=== PATIENT | female | born 2005 | race Caucasian/White ===

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

== ENCOUNTER 2025-04-20 02:26 | Emergency (ER) | payer BC, SELFPAY ==
[2025-04-20 02:31] VITALS: BP 137/89; PULSE 74; TEMP 36.5; O2SAT 98; BMI 34.7
--- NOTE | 2025-04-20 02:55 | ED.URI1 ---
HPI - URI/Sore Throat General Chief Complaint: Upper Respiratory Infection Stated Complaint: CONGESTION,SORE THROAT, FEEL SICK TO STOMACH Time Seen by Provider: 04/20/25 02:51 Source: patient Limitations: no limitations History of Present Illness HPI Narrative: congestion and sore throat for 2 weeks. Productive cough. completing zpak but still feels ill. No fever or vomiting. No GI symptoms and not short of breath Related Data Home Medications ?Medication ?Instructions ?Recorded ?Confirmed azithromycin 250 mg tablet 250 mg PO DAILY 04/20/25 04/20/25 Allergies Allergy/AdvReac Type Severity Reaction Status Date / Time No Known Drug Allergies Allergy Verified 04/20/25 02:37 Review of Systems ROS Status of ROS 10 or more systems reviewed and unremarkable except as noted in history and below [facility] Social History Little interest or pleasure in doing things: not at all Feeling down, depressed, or hopeless: not at all Exam Constitutional Vital Signs, click to edit/add: Last Vital Signs Temp 97.7 F 04/20/25 02:31 Pulse 74 04/20/25 02:31 Resp 18 04/20/25 02:31 BP 137/89 04/20/25 02:31 Pulse Ox 98 04/20/25 02:31 O2 Del Method Room Air 04/20/25 02:31 Common normals: no apparent distress, average body habitus, oriented x3, no limitations, healthy appearing, alert and well nourished [facility] Common normals: normocephalic and head/scalp atraumatic Eye Common normals: PERRL, EOMs intact bilaterally and conjunctivae normal Respiratory Common normals: normal respiratory effort, no retractions, no use of accessory muscles and clear to auscultation bilaterally Cardio Common normals: regular rate, regular rhythm, S1 normal heart sound and S2 normal heart sound Extremity Common normals: normal to inspection and full ROM Neuro Common normals: oriented x3, CN's II-XII intact bilaterally, moves all extremities and no focal motor deficits Psych Appearance: grossly normal Course Vital Signs Vital signs: Vital Signs Temperature 97.7 F 04/20/25 02:31 Pulse Rate 74 04/20/25 02:31 Respiratory Rate 18 04/20/25 02:31 Blood Pressure 137/89 04/20/25 02:31 Pulse Oximetry 98 04/20/25 02:31 Oxygen Delivery Method Room Air 04/20/25 02:31 Temperature 97.7 F 04/20/25 02:31 Pulse Rate 74 04/20/25 02:31 Respiratory Rate 18 04/20/25 02:31 Blood Pressure 137/89 04/20/25 02:31 Pulse Oximetry 98 04/20/25 02:31 Oxygen Delivery Method Room Air 04/20/25 02:31 MDM - URI/Sore Throat MDM Narrative Medical decision making narrative: patient presents complaining of continued chest congestion despite completing course of zpak. covid 19 and influenza neg. cxray per my preliminary reading with prominence of bronchial markings. ? viral bronchitis. ? bacterial bronchitis. will change antibiotics and have her followup with her doctor for a recheck Lab Data Labs: Lab Results 04/20/25 04/20/25 Range/Units 02:38 03:05 WBC 11.0 (4.0-11.0) 10^3/uL RBC 4.75 (4.20-5.40) 10^6/uL Hgb 15.5 (12.0-16.0) g/dL Hct 44.3 (36.0-48.0) % MCV 93.3 (81.0-99.0) fL MCH 32.6 (26.7-34.0) pg MCHC 35.0 (29.9-35.2) g/dL RDW 11.8 (11.0-15.0) % Plt Count 325 (150-450) 10^3/uL MPV 8.9 L (9.5-13.5) fL Neut % (Auto) 44.9 (43.0-75.0) % Lymph % (Auto) 43.9 (20.5-60.0) % Crosby % (Auto) 5.8 (1.7-12.0) % Eos % (Auto) 4.5 (0.9-7.0) % Baso % (Auto) 0.6 (0.2-2.0) % Neut # (Auto) 4.9 (1.4-6.5) 10^3/uL Lymph # (Auto) 4.8 H (1.2-3.8) 10^3/uL Crosby # (Auto) 0.6 (0.3-0.8) 10^3/uL Eos # (Auto) 0.5 (0.0-0.7) 10^3/uL Baso # (Auto) 0.1 (0.0-0.1) 10^3/uL Abs Immat Gran (auto) 0.03 (0.00-0.03) 10^3/uL Imm/Tot Granulo (auto) 0.3 (0.0-0.5) % Sodium 139 (136-145) mmol/L Potassium 4.2 (3.5-5.1) mmol/L Chloride 105 (98-107) mmol/L Carbon Dioxide 30.2 (21.0-32.0) mmol/L Anion Gap 8.0 BUN 11.0 (6.4-19.3) mg/dL Creatinine 0.81 (0.55-1.02) mg/dL Est GFR ( Amer) >60 (>=60 mL/min/1.73m^2) Est GFR (Non-Af Amer) >60 (>=60 mL/min/1.73m^2) BUN/Creatinine Ratio 13.6 Glucose 119 H (74-106) mg/dL Calcium 9.6 (8.5-10.1) mg/dL Influenza Type A Ag Negative Influenza Type B Ag Negative SARS-CoV-2 Ag (CV2AG) Negative (NEGATIVE) Streptococcus Screen Negative Discharge Plan Discharge Chief Complaint: Upper Respiratory Infection Clinical Impression: Upper respiratory infection Patient Disposition: Home, Self-Care Prescriptions / Home Meds: No Action azithromycin 250 mg tablet 250 mg PO DAILY Print Language: Welsh Instructions: Upper Respiratory Infection (ED) Additional Instructions: Keflex every 6 hours for 1 week. follow up with Dr Zavala this week for recheck Referrals: Yuli Zavala MD [Primary Care Provider, Family Practice] - 1 week
--- NOTE | 2025-04-20 02:56 | XR_ITS ---
[place] [id number] Patient Name: AGUSTINA AGRAWAL MRN: [id number] date: 2005 Sex: F Assigned Patient Location: ER Current Patient Location: ED.MAIN Accession/Order Number: [id number] Exam Date: 04/20/2025 03:10 Report Date: 04/20/2025 08:38 At the request of: GERTRUDIS HUNTER MD Procedure: XR chest 2V XR chest 2V 04/20/2025 3:20 AM SIGNS AND SYMPTOMS: ^cough PROTOCOL: Frontal and lateral radiographs of the chest COMPARISON: None FINDINGS: The trachea is midline. The heart and mediastinal structures are within normal limits. The lung parenchyma is clear. The bony thorax is intact. XR/XR chest 2V IMPRESSION: No acute cardiopulmonary pathology. Impression dictated by: Semaj Berry M.D. 04/20/2025 8:38 AM Dictation Location: [place] [id number] Electronically authenticated by: [id number] Y Date: 04/20/2025 08:38
[2025-04-20 03:02] LABS: SARS-CoV-2 Ag NEGATIVE (NEGATIVE)
[2025-04-20 03:14] LABS: Hematocrit 44.3 % (36.0-48.0); Hemoglobin 15.5 g/dL (12.0-16.0); Immature Granulocytes Abs Auto 0.03 10^3/uL (0.00-0.03); Immature Granulocytes Pct Auto 0.3 % (0.0-0.5); Lymphocytes Absolute Auto 4.8 10^3/uL (1.2-3.8); Mean Corpuscular HGB Conc 35.0 g/dL (29.9-35.2); Mean Corpuscular Hemoglobin 32.6 pg (26.7-34.0); Mean Corpuscular Volume 93.3 fL (81.0-99.0); Platelet Count 325 10^3/uL (150-450); Red Blood Count 4.75 10^6/uL (4.20-5.40); White Blood Count 11.0 10^3/uL (4.0-11.0)
[2025-04-20 03:21] LABS: Anion Gap 8.0; Blood Urea Nitrogen 11.0 mg/dL (6.4-19.3); Calcium 9.6 mg/dL (8.5-10.1); Carbon Dioxide 30.2 mmol/L (21.0-32.0); Chloride 105 mmol/L (98-107); Estimated GFR (African America >60 (>=60 mL/min/1.73m^2); Estimated GFR (Non-African Ame >60 (>=60 mL/min/1.73m^2); Glucose 119 mg/dL (74-106); Potassium 4.2 mmol/L (3.5-5.1); Sodium 139 mmol/L (136-145)
--- OUTSIDE RECORDS SUMMARY | 2025-04-20 03:51 | XMS_ITS | CCD ---
Author Organization [facility] CliniSynd Care Team Providers Care Team Sports Sales Associate Name Role Phone Unknown, Referring Provider Unavailable Unav Vickie Rodriguez Unavailable Albino Hamilton Unavailable KEYON, DR YULI Jerez Admitting Unavailable TA, DR YULI Jerez Primary Care Unavailable TA, DR YULI Jerez Consulting Unavailable TA, DR YULI Jerez Attending Unavailable TA, DR YULI Jerez Admitting Unavailable TA, DR YULI Jerez Primary Care Unavailable TA, DR YULI Jerez Attending Unavailable TA, DR YULI Jerez Primary Care Unavailable BEKAH, LIVAN Attending Unavailable BEKAH, LIVAN Admitting Unavailable LU AGUILERA Consulting Unavailable BEKAH, LIVAN Consulting Unavailable JUICE DE LA CRUZ Consulting Unavailable KEYON, DR YULI Jerez Primary Care Unavailable CRISTIANO MORRISON Attending Unavailable CRISTIANO MORRISON Admitting Unavailable CRISTIANO MORRISON Consulting Unavailable MARK ROMANO Consulting Unavailable KEYON, DR YULI Jerez Primary Care Unavailable EVAN, DR ANDI Davis Admitting Unavaildamián GORDON, DR ANDI aDvis Consulting Unavailabl roman GORDON, DR ANDI Davis Attending UnavailLU Kent Consulting Unavailable KEYON, DR YULI Jerez Primary Care Unavailable VIJAYA, DR CLINE Attending Unavailable VIJAYA, DR CLINE Admitting Unavailable ASHLYN, DR KRITSEL Cadena Consulting Unavailable VIJAYA, DR CLINE Consulting Unavailable KEYON, DR YULI Jerez Primary Care Unavailable KEYON, DR YULI Jerez Consulting Unavailable KEYON, DR YULI Jerez Attending Unavailable KEYON, DR YULI Jerez Admitting Unavailable KEYON, DR YULI Jerez Admitting Unavailable TA, DR YULI Jerez Primary Care Unavailable TA, DR YULI Jerez Consulting Unavailable KEYON, DR YULI Jerez Attending Unavailable EILSHA HEWITT Consulting Unavailable KEYON, DR YULI Jerez Admitting Unavailable KEYON, DR YULI Jerez Primary Care Unavailable TA, DR YULI Jerez Consulting Unavailable KEYON, DR YULI Jerez Attending Unavailable TA, DR YULI Jerez Primary Care Unavailable EDER, DR DAVID Attending Unavailable EDER, DR DAVID Admitting Unavailable EDER, DR DAVID Consulting Unavailable MD Yuli Ta Primary Care Provider DO Albino Hamilton Attending Provider Yuli Ta Unavailable Yuli Ta Primary Care Unavailable Albino Hamilton Attending Unavailable Albino Hamilton Admitting Unavailable Medications Current Medications MedicationDrug Class(es)DatesSig (Normalized)Sig (Original)[id number] 60 actuat albuterol 0.09 mg/actuat metered dose inhaler (4 sources)beta2-Adrenergic AgonistStart: 54-64-7967gpvq 2 puff(s) by inhalation every four hours as neededStart: 97-87-2095ycgx 2 puff(s) by inhalation every four hours as neededStart: 55-82-0576jylknzmjknvls hydrochloride 25 mg oral tablet (10 sources)Tricyclic AntidepressantStart: 45-80-1325gsly 1 tablet by mouth every twenty-four hoursAmitriptyline HCl 25 MG 1 tablet at bedtime Orally Once a day for 30 day(s) Oct, Activetake 0.5 tablet by mouth once daily at bedtimeazithromycin 250 mg oral tablet (2 sources)Macrolide AntimicrobialStart: 16-37-8203Gadgtfbadbrn 250 MG as directed Orally 2 tabs po today, then 1 tab daily x 4 more days for 5 Mar, Activeibuprofen 20 mg/ml oral suspension (1 source)Nonsteroidal Anti-inflammatory DrugStart: 17-83-7720Koztcdrah Active 400 MG PO every 6 to 8 hours 250 October 25, 2017 12:00ammeloxicam 7.5 mg oral tablet (3 sources)Nonsteroidal Anti-inflammatory DrugStart: 20-86-2366cezv 1 tablet by mouth every twenty-four hoursMeloxicam 7.5 MG 1 tablet Orally Once a day for 30 day(s) Jan, ActivemethylPREDNISolone 4 mg oral tablet (1 source)CorticosteroidStart: 66-74-9633tcfxvbqfcgg 10 mg oral tablet (6 sources)Leukotriene Receptor AntagonistStart: 93-19-9653iyak 1 tablet by mouth every twenty-four hourstiZANidine 2 mg oral tablet (3 sources)Central alpha-2 Adrenergic AgonistStart: 07-18-2022 Completed/Discontinued Medications MedicationDrug Class(es)DatesSig (Normalized)Sig (Original)amoxicillin 80 mg/ml oral suspension (1 source)Penicillin-class AntibacterialStart: 38-64-3490Puprjzbtwmt 400 MG/5ML 2 teaspoonful Orally every 12 hrs for 10 days Apr, Not-Takingcephalexin 50 mg/ml oral suspension (1 source)Cephalosporin AntibacterialStart: 10-25-2017 End: 15-30-2094byfz 500 mg by mouth every eight hoursCephalexin Discontinued 500 MG PO Q8H 300 10 October 25, 2017 12:00am November 04, 2017 12:02amUnspecified Medication (1 source)Unspecified Medication Quantity: 0 Refills: 0 Ordered: 15-Oct-2021 DO Active Problems Active Problems Problem ClassificationProblemDateDocumented DateEpisodic/ChronicAsthma (5 sources)Mild intermittent asthma; Translations: [Mild intermittent asthma with (acute) exacerbation]ChronicBlindness and vision defects (1 source)Visual field defect; Translations: [Visual field defect, unspecified] Onset: 55-60-5537AdslwgiiFfmovclp, dementia, and amnestic and other cognitive disorders (10 sources)Postconcussion syndrome; Translations: [Postconcussional syndrome] ChronicGlaucoma (1 source)Preglaucoma, unspecified, bilateral; Translations: [Glaucoma suspect, both eyes]Onset: 06-45-5668XxruhpwNadxyxzh; including migraine (7 sources)Tension-type headache; Translations: [Tension-type headache, unspecified, not intractable]ChronicHeadache; including migraine (3 sources)Headache; including migraine; Translations: [HEADACHE UNSPECIFIED] Onset: 57-28-1487Jzne wounds of head; neck; and trunk (1 source)Laceration - injury; Translations: [Laceration]75-35-6883PdgdznikYuaab connective tissue disease (1 source)Plantar fascial fibromatosisEpisodicOther non-traumatic joint disorders (6 sources)Pain in wrist; Translations: [Pain in left wrist]EpisodicOther upper respiratory disease (6 sources)Allergic rhinitis; Translations: [Other allergic rhinitis]Chronic Other upper respiratory disease (2 sources)Other allergic rhinitisChronicOther upper respiratory infections (4 sources)Acute upper respiratory infection, unspecified; Translations: [Acute recurrent maxillary sinusitis]Onset: 03-20-2021 Resolved: 05-26-0717UmzgvjsyPrgvjdzpbyct (4 sources)CONTACT W/AND (SUSP) EXPOS COVID-19; Translations: [CONTACT W/AND (SUSP) EXPOS COVID-19]Onset: 07-82-9998Rysrvczkyzgn (3 sources)COUGH, UNSPECIFIED; Translations: [COUGH, UNSPECIFIED]Onset: 36-79-2104Lydabxcnbvlx (6 sources)Chronic daily headache; Translations: [Chronic daily headache] Unclassified (1 source)Concussion without loss of consciousness, initial encounter; Translations: [Concussion without lossof consciousness, initial encounter]Onset: 12-11-2021 Past or Other Problems Problem ClassificationProblemDateDocumented DateEpisodic/ChronicE Codes: Fall (1 source)Unspecified fall, initial encounter; Translations: [UNSPECIFIED FALL INITIAL ENCOUNTER]Onset: 40-67-8956YrrzkajsF Codes: Natural/environment (2 sources)Overexertion from prolonged static or awkward postures, initial encounter; Translations: [Struck bydog, initial encounter]Onset: 02-22-2021 EpisodicE Codes: Unspecified (4 sources)Activity, basketball; Translations: [ACTIVITY BASKETBALL]Onset: 04-11-2021 Resolved: 46-54-9028JtfcbdhoHbxxftdswnldb and screening for infectious disease (1 source)Contact with and (suspected) exposure to other viral communicable diseasesOnset: 06-29-2021 Resolved: 53-08-6268RqdigupcRjlubmfykhfv injury (7 sources)Concussion without loss of consciousness, initial encounter; Translations: [Concussion without lossof consciousness, subsequent encounter] Onset: 04-27-2021 Resolved: 23-49-5215RcbbbuirRugxs injuries and conditions due to external causes (3 sources)Unspecified injury of left wrist, hand and finger(s), initial encounter; Translations: [UNS INJ LT WRIST HAND FINGERS INIT]Onset: 04-10-2021 EpisodicOther injuries and conditions due to external causes (1 source)Other specified injuries of head, initial encounter; Translations: [OTH SPEC INJURIES HEAD INITIAL ENC]Onset: 02-31-4623SqkbfmvnTpzyi non-traumatic joint disorders (3 sources)Pain in left ankle and joints of left foot; Translations: [PAIN IN LEFT ANKLE]Onset: 91-87-1101LwpriorfOyxoe upper respiratory disease (1 source)Nasal congestion; Translations: [NASAL CONGESTION]Onset: 05-01-2021 EpisodicSprains and strains (6 sources)Sprain of unspecified ligament of left ankle, subsequent encounter; Translations: [Sprain of unspecified ligament of left ankle, initial encounter] Onset: 03-11-2963DcizfyvsRwsfglokyvmk (1 source)CONTACT W/AND (SUSP) EXPOS COVID-19; Translations: [CONTACT W/AND (SUSP) EXPOS COVID-19]Onset: 06-28-5818Kvdekjbpgmtn (1 source)COUGH, UNSPECIFIED; Translations: [COUGH, UNSPECIFIED]Onset: 79-72-4161Dcmqhgzqyvex (6 sources)Worsening headaches; Translations: [Worsening headaches]Viral infection (1 source)COVID-19 Results Test NameValueInterpretationReference RangeFacilityCovid-19 PCR (CVDTBH)on 42-32-7717GPYK-CoV-2 (COVID-19) RNA CORRINA+probe Ql (Unsp spec)Not detectedNormal NOT DETECTEDThe [facility] Community HospitalComment on above:Result Comment: This test is not yet approved or cleared by the [place] FDA. When there are no FDA- approved or cleared tests available, and other criteria are met, FDA can make tests available under an emergency access mechanism called an Emergency Use Authorization (EUA). The EUA for this test is supported by the [employer] of Health and Human Service's (HHS's) declaration that circumstances exist to justify the emergency use of in vitro diagnostics for the detection and/or diagnosis of the virus that causes COVID-19. This EUA will remain in effect (meaning this test can be used) for the duration of the COVID-19 declaration justifying emergency of IVDs, unless it is terminated or revoked by FDA (after which the test may no longer be used). When diagnostic testing is negative, the possibility of a false negative should be considered in the context of a patient's recent exposures and the presence of clinical signs and symptoms consistent with SARS-CoV-2.Performed By: #### CVDTBH #### [facility] [address] [place] [address] Dr. Lacie RichXR ANKLE LT MIN 3 Von 57-00-6945KZ ANKLE LT MIN 3 VEXAM: XR ANKLE LT MIN 3 V HISTORY: Lateral ankle pain after fall COMPARISON: None. TECHNIQUE: FINDINGS: No osseous lesion, fracture, dislocation or subluxation. Joint spaces are normal. No visualized effusion. No visualized soft tissue edema. IMPRESSION: Normal x-rays Electronically authenticated by: JUICE DE LA CRUZ Date: 2021-08-14 18:08NoAshtabula County Medical CenterCOVID Quick Testingon 11-07-3242DXPRA Quick TestingNosoutheast missouri hospital [employer] Other Quick Fluon 33-49-1921IISPK Ab CF (S) [Titer]Negative [employer] Other FLUBV Ab CF (S) [Titer]NegativeAsteel [employer] Other CT HEAD WO CONon 45-14-8071BJ HEAD WO CONHEAD CT WITHOUT CONTRAST: 04/27/2021 3:08 PM EST Clinical Data: Intracranial injury with loss of consciousness Comparison: 02/21/2021 Unenhanced axial data from base to vertex. INTRA-AXIAL: No acute hemorrhage. No acute infarction is evident. EXTRA-AXIAL: No acute hemorrhage. No focal fluid collection. BRAIN VOLUME: Unremarkable for age. VENTRICLES: No hydrocephalus PARANASAL SINUSES: No air-fluid levels in the included aspects. MASTOIDS: Clear. CALVARIUM: No acute finding. EXTRACALVARIAL: No acute findings IMPRESSION: 1. No evidence of acute intracranial process on this unenhanced study as described. All CT scans at this facility use dose modulation, iterative reconstruction, and/or weight based dosing when appropriate to reduce radiation dose to as low as reasonably achievable. Electronically authenticated by: ELISHA HEWITT Date: 2021-04-27 15:57NoAshtabula County Medical CenterCovid-19 PCR (CVDTB)on 61-81-8382CUHO-CoV-2 (COVID-19) RNA CORRINA+probe Ql (Unsp spec)Not detectedNormalNOT DETECTEDThe [facility] Comment on above:Result Comment: This test is not yet approved or cleared by the [place] FDA. When there are no FDA-approved or cleared tests available, and other criteria are met, FDA can make tests available under an emergency access mechanism called an Emergency Use Authorization (EUA). The EUA for this test is supported by the [place] of Health and Human Service's (HHS's) declaration that circumstances exist to justify the emergency use of in vitro diagnostics for the detection and/or diagnosis of the virus that causes COVID- 19. This EUA will remain in effect (meaning this test can be used) for the duration of the COVID-19 declaration justifying emergency of IVDs, unless it is terminated or revoked by FDA (after which the test may no longer be used). When diagnostic testing is negative, the possibility of a false negative should be considered in the context of a patient's recent exposures and the presence of clinical signs and symptoms consistent with SARS-CoV-2.Performed By: #### CVDTBH #### [facility] [address] [place] [address] Dr. Lacie RichCULTMIKE THROATon 43-86-9315AQZEPJD THROATCulture Observations: NORMAL RESPIRATORY GUSTAVO.NormalThe [facility] Community HospitalComment on above:Performed By: #### SSCRN, THRTCX #### [facility] [address] [place] [address] Dr. Lacie RichCovid-19 PCR ([facility])on 25-72-9256QKWY-CoV-2 (COVID-19) RNA CORRINA+probe Ql (Unsp spec)Not detectedNormalNOT DETECTEDUniversity Hospitals Ahu[facility] Comment on above:Result Comment: When diagnostic testing is negative, the possibility of a false negative should be considered in the context of a patient's recent exposures and the presence of clinical signs and symptoms consistent with SARS-CoV-2.Performed By: #### CVDTBH #### [facility] [address] [place] [address] Dr. Lacie RichSTREPT SCREENon 40-91-2384RIGAJ SCREEN ANegativeNormalNEGATIVEThe [facility] Community HospitalComment on above:Performed By: #### SSCRN, THRTCX #### [facility] [address] [address] [address] Lacie RichCT HEAD WO CONon [id number] HEAD WO CONEXAM: CT HEAD WO CON REASON FOR EXAM: Female, 15 years, UNSPECIFIED INJURY OF HEAD, INITIAL ENCOUNTER. TECHNIQUE: Computed tomography of the head is performed in the axial projection from the base of the skull to the vertex. Sagittal and coronal reconstructed images are performed. Dose reduction techniques were achieved by using automated exposure control and/or adjustment of mA and/or KVP according to patient size and/or use of iterative reconstruction technique. COMPARISON: None. FINDINGS: Normal soft tissues. Normal calvarium. The ventricles have normal size and configuration for patient's age. Normal brain parenchyma. Normal basal ganglia. Normal brainstem. The cerebellum is normal. There is no evidence for acute ischemia. There is no evidence for acute hemorrhage. The visualized paranasal sinuses are clear. IMPRESSION: Normal CT of the brain. Electronically authenticated by: MARK ROMANO Date: 2021-02-21 16:57NoAshtabula County Medical CenterCovid-19 PCR (CVDTBH)on 84-64-1289JNFD-CoV-2 (COVID-19) RNA CORRINA+probe Ql (Unsp spec)Not detectedNormalNOT DETECTEDThe [facility] Comment on above:Result Comment: This test is not yet approved or cleared by the [place] FDA. When there are no FDA-approved or cleared tests available, and other criteria are met, FDA can make tests available under an emergency access mechanism called an Emergency Use Authorization (EUA). The EUA for this test is supported by the [place] of Health and Human Service's (HHS's) declaration that circumstances exist to justify the emergency use of in vitro diagnostics for the detection and/or diagnosis of the virus that causes COVID- 19. This EUA will remain in effect (meaning this test can be used) for the duration of the COVID-19 declaration justifying emergency of IVDs, unless it is terminated or revoked by FDA (after which the test may no longer be used). When diagnostic testing is negative, the possibility of a false negative should be considered in the context of a patient's recent exposures and the presence of clinical signs and symptoms consistent with SARS-CoV-2.Performed By: #### CVDTBH #### [facility] [address] [address] [address] Lacie Rich Vital Signs Date TimeVital SignValuePerforming UbvdhetyiZkylvcno80-65-8408 09:30-0400Body hyxrbd226.18 cmYuli Ta Other [employer] Other 09-27-2023 09:30-0400Body mass index (BMI) [Ratio] 32.42 kg/c1VgcqfiYuli Ta Other [employer] Other 09-27-2023 09:30-0400Body zndigk45.9 kgYuli Ta Other [employer] Other 09-27-2023 09:30-0400Diastolic blood khwfhpia02 mm[Hg] Yuli Ta Other [employer] Other 09-27-2023 09:30-0400Systolic blood wnrowxgq036 mm[Hg] Yuli Ta Other [employer] Other 07-05-2023 10:45-0400Body .35 kgYuli Ta Other [employer] Other 07-05-2023 10:45-0400Diastolic blood mm[Hg] Yuli Ta Other [employer] Other 07-05-2023 10:45-0400Systolic blood mm[Hg] Yuli Ta Other [employer] Other 08-03-2022 10:45-0400Body hcoraf286.72 cmAlbino Hamilton Other [employer] Other 08-03-2022 10:45-0400Body mass index (BMI) [Ratio]26.8 kg/q3SawsjfaAlbino Hamilton Other [employer] Other 08-03-2022 10:45-0400Body yfsrsr73.97 kgMattmargaret Hamilton Other [employer] Other 08-03-2022 10:45-0400Diastolic blood hmofbbho31 mm[Hg] Albino Hamilton Other [employer] Other 08-03-2022 10:45-0400Respiratory rate18 /minMaizzy Hamilton Other [employer] Other 08-03-2022 10:45-8177WrV7% (BldA) [Mass fraction]99 % Albino Hamilton Other [employer] Other 08-03-2022 10:45-0400Systolic blood fejgevhu481 mm[Hg] Albino Hamilton Other [employer] Other 07-13-2022 10:45-0400Body dqkiya385.72 cmMaizzy Hamilton Other [employer] Other 07-13-2022 10:45-0400Body mass index (BMI) [Ratio] 26.76 kg/k6NjeprxaAlbino Hamilton Other [employer] Other 07-13-2022 10:45-0400Body .83 kgMattmargaret Hamilton Other [employer] Other 07-13-2022 10:45-0400Diastolic blood mm[Hg] Albino Joy Other [employer] Other 07-13-2022 10:45-0400Respiratory rate18 /minMattmargaret Hamilton Other [employer] Other 07-13-2022 10:45-5423MfY7% (BldA) [Mass fraction]97 % Albino Joy Other [employer] Other 07-13-2022 10:45-0400Systolic blood mm[Hg] Albino Joy Other [employer] Other 06-01-2022 09:30-0400Body ghuygd222.72 cmAlbino Hamilton Other [employer] Other 06-01-2022 09:30-0400Body mass index (BMI) [Ratio] 25.31 kg/w5DtrldotAlbino Hamilton Other [employer] Other 06-01-2022 09:30-0400Body tutycw16.52 kgAlbino Hamilton Other [employer] Other 06-01-2022 09:30-0400Diastolic blood vbwywrrq20 mm[Hg] Albino Joy Other [employer] Other 06-01-2022 09:30-0400Respiratory rate18 /minNikkiizzy Hamilton Other [employer] Other 06-01-2022 09:30-1693JdN7% (BldA) [Mass fraction]96 % Albino Hamilton Other [employer] Other 06-01-2022 09:30-0400Systolic blood ajuhriwx233 mm[Hg] Albino Hamilton Other [employer] Other 02-18-2022 14:40-0500Body .18 cmPamela Constanza Other [employer] Other 02-18-2022 14:40-0500Body mass index (BMI) [Ratio] 23.49 kg/f2Pptkqw Constanza Other [employer] Other 02-18-2022 14:40-0500Body ggjkwwwpyfe55.6 [degF]Vickie Apodaca Other [employer] Other 02-18-2022 14:40-0500Body tebbfu84.04 kgPaandrew Apodaca Other [employer] Other 02-18-2022 14:40-0500Respiratory rate18 /minArijhoana ArshadConstanza Other [employer] Other 02-18-2022 14:40-1544YsW8% (BldA) [Mass fraction]98 % Vickie Arshadmond Other [employer] Other Encounters Encounter DateEncounter TypeCare ProviderFacilityStart: 06-18-2023(Televisit) SeanisitYuli Granados [facility]: 06-18-2023 End: 60-84-9592rcmxzqqwzaUvqioe Braun [facility] [employer] Other Start: 03-18-2023(Televisit) TelevisitYuli TaHAVASU [facility] ClinicStart: 03-18-2023 End: 71-39-0098kszltwfxeoKiagiv Keyon Other [employer] Other Start: 02-05-2023 End: 55-67-3441lfehajkoqbZbiqub Braun [facility] [employer] Other Start: 78-60-7939Bssepv outpatient visit 15 minutes Yuli [facility] ClinicStart: 11-13-2022 End: 76-79-0852bhqnolfzvjJvrsvi Keyon [facility] [employer] Other Start: 92-80-3946Zmgmwt outpatient visit 15 minutes Yuli [facility] ClinicStart: 08-01-2022 End: 10-61-5176pjqycoxqeyOkvlrn Keyon Other [facility] [employer] Other Start: 86-20-7391Zmfciaulw encounterYuli TaHAVASU REGIONAL [facility] ClinicStart: 07-18-2022(Televisit) Shahzad TaHAVASU [facility] ClinicStart: 07-18-2022 End: 75-04-8086ckefkcqxzkDyyzjn Braun Other [facility] [employer] Other Start: 80-53-7631bcnyqailywDJ YULI TA Facility:A8Yrfpf: 12-12-2021 End: 23-17-9040wcnbioddoqGwvumjq Widmer Other no[employer]lePass [employer] Other Start: 11-32-4942Klijbj outpatient visit 25 minutes Albino HamiltonHAV[facility] [place]: 12-11-2021 End: 66-02-1729jzqssiqkfoSufeek E BraunFacility:[facility] Hospitaltart: 12-11-2021 End: 67-83-1262Lnjyjforca RecurringMD Yuli Ta Work Phone: [facility] Phenix RdStart: 12-03-2021 End: 88-96-7861ghayrniuguKyhjump Joy Other [employer] Other Start: 14-59-4989Jixlqjmxs encounterMattw [facility]Gal[facility] [place]Start: 11-21-2021 End: 18-90-1679prkfwsmzqeKxbnctr Joy Other [employer]Pass [employer] Other Start: 59-23-7953Trqlmw outpatient visit 15 minutes Albino JoyHAV[facility] [place]Start: 29-94-3184Oibcohe encounter procedureReferring Provider Count includes the [facility] [address] Work Phone: Start: 10-10-2021 End: 74-90-9717letofnshuzFmehczj Joy Other [employer] Other Start: 34-06-9135Gjaujj consultation new/estab patient 40 minMatthew KenyaRegency Hospital ToledoG [facility] Medicine [place]kyStart: 09-14-2021 End: 29-36-7073pddycatremTR YULI TAFacility:O8Vpims: 08-31-2021 End: 69-94-7509enomyzrjlsJN MARCIA E BRAUNFacility:D9Qzwym: 08-14-2021 End: 52-63-0492qpwzfgepnjTJ YULI TAFacility:Z1Bqlfs: 06-29-2021(URG) Urgent Care VisitPamela DyjosueFPG [facility]gent Care ClydeStart: 06-29-2021 End: 68-15-7740zcrkpusjcpGjqxav Constanza Other [employer] Other Start: 04-27-2021 End: 46-48-0100phhhudqfhsYN YULI Jerez KEYONFacility:A9Vpixs: 04-26-2021 End: 35-50-4053xnscuwfpstLY YULI Jerez BRAUNFacility:U2Gypcm: 04-10-2021 End: 44-12-2961cwivdpxfceKD YULI Jerez KEYONFacility:M1Vdxzu: 03-19-2021 End: 35-23-9757gsnsdejmugDM YULI Jerez KEYONFacility:M4Ujvoy: 02-21-2021 End: 67-97-8936mrhaohmonvFM YULI Jerez BRAUNFacility:Q2Igvku: 02-06-2021 End: 17-58-4934tzxntilkllLW YULI Jerez BRAUNFacility:H1 Procedures DateProcedureProcedure DetailPerforming ClinicianNo history of surgeryReferring Provider Unknown Immunizations Immunization DateImmunizationNotesCare DyqffxzpJurhdvpo61-12-4408gpzasirruqakm oligosaccharide (groups A, C, Y and W-135) diphtheria toxoid conjugate vaccine (MCV4O)Yuli Ta Other [facility] [employer] Other [id number] toxoid, reduced diphtheria toxoid, and acellular pertussis vaccine, adsorbedMD Yuli Ta Work Phone: [facility] Payers DatePayer CategoryPayerPolicy [id number]-[id number] ..[id number] ..[id number] ..[id number] ..[id number] Care Hospital of Southern New [id number].Unknown [id number] Social History OpvfTlglSpjjwrEuecuohxNxu-mhhkutShv-xihjtpWgtuz [place] [employer] Other [facility] [employer] Other Start: [id number] Assigned At [facility] Clinical Notes 04-10-2021 to 06-18-2023 Note Date & [id number] Evaluation note* Encounter Date Diagnosis Assessment Notes Treatment Notes Treatment Clinical Notes Jun, Acute COVID-19 (ICD-10 - U07.1) discussed quarantine protocol. symptom management with cold medications. note off school 06/16 - 06/20 [facility] [employer] Other 11-07-2023 Evaluation note* Encounter Date Diagnosis Assessment Notes Treatment Notes Treatment Clinical Notes Mar, Acute recurrent maxillary sinusi tis (ICD-10 - J01.01) Sinus infections can be triggered by a secondary infection from a viral URI or even seasonal allergies. Take medications as directed. Use saline nasal spray prior to presciption nasal spray. Take medications as directed, and complete all doses of medication even if you start to feel better. Patientadvised to follow up with PCP if symptoms persist or worsen. Patient verbalized understanding and agreement with treatment plan. [facility] Other 09-27-2023 Evaluation note* Encounter Date Diagnosis Assessment Notes Treatment Notes Treatment Clinical Notes Jan, Plantar fasciitis, right (ICD-10 - M72.2) Patient to continue to do home exercises to help stretch feet. She is to avoid going barefoot around the house and change shoes a few time throughout the day. Continue to moniotr pain and inform the office of any changes or worsening symptoms. Jan,Upper respiratory tract infection, unspecified type (ICD-10 - J06.9) Symptoms appear viral today. Continue to use Tylenol and ibuprofen for general discomfort. Encourage fluids and rest. Symptoms should improve within the next 4-7 days. Patient verbalizes understanding and agreement with treatment plan. [facility] Other 03-23-2023 Evaluation note* Encounter Date Diagnosis Assessment Notes Treatment Notes Treatment Clinical Notes Jul, Non-seasonal allergi c rhinitis due to other allergic trigger (ICD- 10 - J30.89) [facility] Other 03-09-2023 Evaluation note* Encounter Date Diagnosis Assessment Notes Treatment Notes Treatment Clinical Notes Jul, Tension headache (ICD-10 - G44.2 ) Lacy's history is related to her postconcussive issues. Her headache distribution has changed which on describing sounds like a tension headache. She is not able to come to the office today for an office visit. I encouraged her to come next week if symptoms continue. We will try low-dose muscle relaxers in the meantime for possible tension headache. Patient understands to go to ER if headache worsens. Jul,Non-seasonal allergic rhinitis due to other allergic trigger (ICD-10 - J30.89)We will trial Singulair as a new medicine for possible systemic allergic reaction to the wool pads. [facility] Other 08-03-2022 Evaluation note* Encounter Date Diagnosis Assessment Notes Treatment Notes Treatment Clinical Notes Dec, Basketball activities (ICD-10 - Y93.67) Dec,oncussion without loss of consciousness, subsequent encounter (ICD- 10 - S06.0X0D)Patient is still improving though she does still continue to have headaches that are exacerbated bybright lights and working on the sun. I instructed her to make sure that she is staying hydrated when working out in the sun to make sure that there is not other exacerbating factors besides just the bright lights such as dehydration from working outside in the sun. She has been doing some light physical activity without difficulty and I encouraged her to continue with this and even to increase it slightly but no strenuous sport activity. She has finished physical therapy at this point and did well with that. She is not having any significant neurocognitive issues at this point. We could consider return to play protocol initiation at this point however patient has an extended period of timebefore she needs to start getting ready for sport activity so we will take it slow. We will again attempt to wean down on the amitriptyline and she is to do half the dose for 2 weeks using Motrin andTylenol for the headache instead if it starts to occur and then come off of it after 2 weeks and see how she does. She will follow-up in 4 weeks for reassessment. [facility] Other 07-13-2022 Evaluation note* Encounter Date Diagnosis Assessment Notes Treatment Notes Treatment Clinical Notes Nov, Basketball activities (ICD-10 - Y93.67) Nov,2Concussion without loss of consciousness, subsequent encounter (ICD- 10 - S06.0X0D)Patient's concussion is significantly improved and she was instructed to continue with physical therapy. She is going to continue for now using amitriptyline 25 mg nightly but was instructed to try coming off of it over the next several weeks. She was given the okay to do some light bike riding as well as shooting baskets. No aggressive sport activity at this time. She will follow-up in 3 weeks. [facility] Other 06-01-2022 Evaluation note* Encounter Date Diagnosis Assessment Notes Treatment Notes Treatment Clinical Notes Oct, Concussion without l oss of consciousness, initial encounter (ICD-10 - S06.0X0A) In reviewing patient's history with her and her family she has had 2 separate injuries 1 April 25 and then another on June 03. She return to sport activity after a week of rest from the initialinjury which was not likely long enough and undoubtedly she did not recover fully given the fact that she did not do a return to play protocol per guideline. It is doubtful that she fully recovered even before the second injury which then has caused worsening symptoms and deficits for her that havenow lasted just over 4 months. Also in that 4- month timeframe she has not been given proper restrictions for school. School has now ended so this is no longer a concern. Patient instructed to start taking Fish oil supplement as well as switching from Cyproheptadine to amitriptyline 25 mg nightly. Gave potential side effects of this medication and instructed to call right away if any problems withit. Patient does have an appointment with neurology next Friday and I instructed them that if they have a treatment plan that parents are happy with they are more than welcome to continue to follow [facility] neurology and forego following up with me. Otherwise I will plan to see them back in 4 weeks. Patient is to abstain from any stressful physical activity and only do light activity that does not aggravate her symptoms or elevate her heart rate. Patient and family voiced understanding agree with this plan. We will also plan to start physical therapy for vestibular ocular rehab. Oct,asketball activities (ICD-10 - Y93.67) [facility] Other 02-18-2022 Evaluation note* Encounter Date Diagnosis Assessment Notes Treatment Notes Treatment Clinical Notes Jun, Contact with and (alfaro spected) exposure to other viral communicable diseases (ICD-10 - Z20.828) Jun,Viral upper respiratory illness (ICD-10 - J06.9) Drink plenty fluids, get plenty of rest. Take Tylenol or Motrin for aches pains or fevers. Considertaking Sudafed or Mucinex for nasal congestion. Follow-up with family physician if no improvement in 2 to 3 days. Jun,ther Additional time spent conducting pre-visit phone call, screening for symptoms, instructions on social distancing, application and removal of PPE, and cleaning of examination room, equipment and supplies was preformed. Patient education given for testing methodology and results. Patient care instructions given in writting by [facility] Care At Home document. [facility] Other 11-30-2021 NotePROCEDURE: XR WRIST LT MIN 3 V HISTORY: Injury of left wrist ; acute pain after falling COMPARISON: None. FINDINGS: BONES:No fracture, acute abnormality, or significant arthropathy. SOFT TISSUES:No visible soft tissue swelling. EFFUSION:None visible. OTHER: Negative. IMPRESSION: 1. No acute bone abnormality. Electronically authenticated by: KRISTEL GOLDBERG Date: 2021-04-10 10:42[facility] CenterEvaluation noteNo InformationNosoutheast missouri hospital [employer] Other Evaluation noteNo assessment information available [facility] Work Phone: Evaluation noteViroqua [employer] Other History general Narrative - Reported* Type Description Date Hospitalization History [facility] Other Hisellm general Narrative - Reported* Type Description Date Medical History Concussion syndrome Medical HistoryChronic daily headacheMedical HistoryPain in left wristMedical HistoryWorsening headachesHospitalization HistoryRSV [facility] Other History general Narrative - ReportedViroqua [employer] Other Hislkxx general Narrative - Reported* Type Description Date Medical History Concussion syndrome Medical HistoryChronic daily headacheMedical HistoryPain in left wristMedical HistoryWorsening headachesSurgical HistoryNo know Surgical history Hospitalization HistoryRSV [facility] Other History general Narrative - Reported* Type Description Date Medical History Concussion syndrome Medical HistoryChronic daily headacheMedical HistoryPain in left wristMedical HistoryWorsening headachesSurgical HistoryNo Surgical history information Hospitalization HistoryRS [facility] Other Reason for visit NarrativeReferral from Dr. Ta for concussion - offered earlier appt, [facility] Other Family History No Family History Records FoundUnknown Family Member Name Dates Details Family history of glaucoma: Maternal Grandfather(V19.11, Z83.511) Status:Active Summary Purpose Advance Directives No Advanced Directives Records Found Advance Directive Response Recorded Date/ Time Advance Directives No March 15, 2017 8:20pm Chief Complaint and Reason for Visit Chief Complaint B/C vertigo after co ncussion Additional Source Comments REASON FOR VISIT (unrecogniz ed section and content) #5 SORE THROAT, CHEST CONGES TION, COUGH X 3 DAYS5 week concussion follow upFYI3 week follow [id number], PAIN IN FOOThead cold, chest congestion, sore throatsinus congestion, headache INFORMATION SOURCE (unrecogn ized section and content) DATE CREATED AUTHOR 12/21/2021 [facility] DATE CREATED AUTHOR AUTHOR'S ORGANIZ ATION 04/13/2024 [facility] Care Teams (unrecognized sec tion and content) Team Status: Inactive Member Role Status Dates Yuli Ta MD Primary Care Provider Active Albino Hamilton , Attending ProviderActive Team Status: Active Member Role Status Dates Yuli Ta MD Primary Care Provider Active Goals (unrecognized section and content) Goals may be documented in a n alternate section FOR RECORDS PERTAINING TO PATIENTS WHO ARE OR HAVE BEEN ENROLLED IN A CHEMICAL DEPENDENCY/SUBSTANCEABUSE PROGRAM, SOME INFORMATION MAY BE OMITTED. This clinical summary was aggregated from multiple sources. Caution should be exercised in using it in the provision of clinical care. This summary normalizes information from multiple sources, and as a consequence, information in this document may materially change the coding, format and clinical context of patient data. In addition, data may be omitted in some cases. CLINICAL DECISIONS SHOULD BE BASED ON THE PRIMARY CLINICAL RECORDS. [employer] [facility]. provides no warranty or guarantee of the accuracy or completeness of information in this document.
--- OUTSIDE RECORDS SUMMARY | 2025-04-20 03:52 | XMS_ITS | Clinical Summary ---
Author Organization [facility] Address [address] [place] [address] Phone Care Team Providers Care Fisher Sponge Hooking Name Role Phone Unavailable Primary Care Provider Unavailabl e Social History Tobacco UseTypesPacks/DayYears UsedDateSmoking Tobacco: Never Assessed CommentsUnknownSex and Gender InformationValueDate RecordedSex Assigned at Not on fileLegal PgfOcwtcs92/25/2022 6:15 PM ESTGender IdentityNot on fileSexual OrientationNot on file Plan of Treatment Not on file
[2025-04-20] MEDS: CEPHALEXIN 500 MG CAPSULE PO (04:00)
== END 2025-04-20 04:03 | disposition home or self-care (01) ==
PROVIDERS: Emergency Provider Internal Medicine; PCP Family Medicine
DX: J06.9 Acute upper respiratory infection, unspecified (principal)
CPT/HCPCS: 36415; 71046; 80048; 85025; 87070; 87804; 87811; 87880; 99283